=== PATIENT | female | born 1950 | race Caucasian/White ===

== ENCOUNTER 2017-07-15 08:32 | Day surgery (SDC) | payer MEDICARE, OTHER ==
[~2017-07-15] VITALS: Ht 162.6 cm; Wt 90.7 kg
[~2017-07-15 08:32] MED LIST: ALEVE220 MG PO; OMEPRAZOLE20 MG PO; TYLENOL EXTRA500 MG PO
== END 2017-07-15 13:00 | disposition home or self-care (01) ==
LOC: DSVR 08:32 → OPS 08:32 → DS 11:00 → OPS 13:00
PROVIDERS: Ophthalmology
PROC: 08Q8XZZ Repair Right Cornea, External Approach (ICD-10-PCS; principal; 2017-07-15 10:00)
DX: H18.51 Endothelial corneal dystrophy (principal); H26.9 Unspecified cataract; J45.909 Unspecified asthma, uncomplicated; K21.9 Gastro-esophageal reflux disease without esophagitis; Z88.2 Allergy status to sulfonamides; Z88.8 Allergy status to other drugs, medicaments and biological substances; Z79.899 Other long term (current) drug therapy
CPT/HCPCS: 00144; J2250; J3010; V2785